=== PATIENT | male | born 1990 | race Caucasian/White ===

== ENCOUNTER 2019-05-15 02:33 | Observation (INO) | payer MEDICAID, SELFPAY ==
[2019-05-15] VITALS (31 sets, daily range): BP systolic 83–140; BP diastolic 50–90; PULSE 98–140; RESP 6–21; TEMP 36.5–37.2; O2SAT 94–100; BMI 29.5; BMI 30.1; BMI 103.6
--- NOTE | 2019-05-15 02:41 | EKG12_ITS ---
Test Reason : [facility] [place] Pressure : / mmHG Vent. Rate : 143 BPM Atrial Rate : 143 BPM P-R Int : 128 ms QRS Dur : 070 ms QT Int : 274 ms P-R-T Axes : 058 036 060 degrees QTc Int : 422 ms Sinus tachycardia Otherwise normal ECG Confirmed by LEXI SAGASTUME, RONI ([id number]), newspaper editor BARB RUIZ ([id number]) on 05/17/2019 11:22:06 AM Referred By: JANNETH Confirmed By:RONI ELLIOTT MD
--- NOTE | 2019-05-15 02:42 | CT_ITS ---
STUDY: CT BRAIN WITHOUT CONTRAST REASON FOR EXAM: Male, 28 years old. ALTERED MENTAL STATUS,HEARING VOICES,UNABLE TO SLEEP X 2 DAYS,ELEVATED BP -- HX:SCHIZOPHRENIA-NO MEDS SINCE MARCH RADIATION DOSAGE (If Supplied By Facility): CTDIvol = ( 44.99 ) mGy, DLP = ( 846.73 ) mGycm TECHNIQUE: Transaxial CT imaging of the brain was performed without administration of intravenous contrast material. Individualized dose optimization techniques were used for this CT. COMPARISON: No relevant priors. FINDINGS: Normal soft tissue structures. Normal calvarium. Normal size ventricles and extra-axial spaces for the patient''s age. Normal white matter tracts of the cerebral hemispheres. Normal basal ganglia and thalami. Normal brainstem. Normal cerebellum. There is no intracranial hemorrhage. There are no findings of an acute ischemic infarction. There is opacification with mucosal thickening of the maxillary sinus, left more than right. Otherwise normal visualized paranasal sinuses. CT/Brain/Head without Contrast IMPRESSION: Normal unenhanced CT scan of the brain. Sequela of maxillary sinus disease, left more than right. Electronically Signed: Judith Wyatt MD at 3:36 EST , Service support ,
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
--- NOTE | 2019-05-15 02:43 | ED.RN ---
parents name and contact information elsy [phone]
[2019-05-15 03:06] LABS: Absolute Lymphocyte Count 1.89 X10^3/uL (0.83-4.51); Absolute Neutrophil Count 18.4 X10^3/uL (2.0-7.7); Basophil# 0.06 X10^3/uL; Basophil% 0.3 % (0-1); Eosinophil# 0.01 X10^3/uL; Hematocrit 46.7 % (40-54); Hemoglobin 16.3 g/dL (13.0-16.5); Lymphocyte # 1.89 X10^3/ul (4.0); Lymphocyte % 8.3 % (19-41); Mean Corp Hgb Conc 34.9 g/dL (32-36); Mean Corpuscular Hgb 30.1 pg (27.0-32.0); Mean Corpuscular Volume 86.3 fL (80-94); Mean Platelet Vol. 9.5 fl (6.2-12.0); Monocyte# 2.11 X10^3/uL; Monocyte% 9.3 % (0-10); NRBC Flagged by Analyzer 0 % (0-5); Neutrophil # 18.43 X10^3/uL (2.7-7.7); Neutrophil % 81.2 % (47-70); POSITIVE DIFFERENTIAL YES; Platelet Count 404 K/mm3 (150-450); RBC Distribution Width CV 12.6 % (11.6-14.6); RBC Distribution Width SD 38.8 fl (35.1-43.9); Red Blood Count 5.41 M/mm3 (4.6-6.2); White Blood Count 22.7 K/mm3 (4.4-11.0)
[2019-05-15 03:10] LABS: Differential Indicated SCAN CRITERIA MET
[2019-05-15 03:29] LABS: ALB/GLOB Ratio 1.1 RATIO (0.9-2.4); AST(SGOT) 66 U/L (15-37); Alanine Aminotransfer ALT/SGPT 183 U/L (16-61); Albumin, Serum 4.3 g/dL (3.2-5.0); Alkaline Phosphatase 107 U/L (45-117); Anion Gap 14 (5-15); BUN 16 mg/dL (7-18); BUN/Creat Ratio 10.7 RATIO (10-20); Calcium,Total 9.5 mg/dL (8.5-10.1); Chloride 98 mmol/L (98-107); Creatinine, Serum 1.49 mg/dL (0.70-1.30); EST Glomerular Filtration Rate 59 mL/min (>60); Est Glom Filt Rate - Afr Amer 72 mL/min (>60); Estimated Creatinine Clearance 83.42 ml/min; Glucose 161 mg/dL (74-106); Potassium 3.3 mmol/L (3.5-5.1); Protein, Total 8.3 g/dL (6.4-8.2); Sodium Level 132 mmol/L (136-145); Thyroid Stim Hormone (TSH) 1.84 uIU/mL (0.358-3.74)
[2019-05-15 03:33] LABS: White Blood Cells 0 SEEN /hpf (0-5)
[2019-05-15 03:40] LABS: Alcohol, Blood (Medical)-Serum < 3.0 mg/dL
[2019-05-15 03:49] LABS: Color, Urine Yellow (Yellow); Glucose, Dipstick Normal (Normal); Leukocyte Esterase-Dipstick Negative /ul (Negative); Nitrite-Dipstick Negative (Negative); Occult Blood-Urine 50 /ul (Negative); Protein-Dipstick 30 mg/dl (Negative); Specific Gravity, Urine 1.025 (1.002-1.030); Urine Bilirubin Dipstick Negative (Negative); Urine Clarity Sl. Cloudy (Clear); Urine Urobilinogen Normal (Normal)
[2019-05-15 03:55] LABS: Ketone-Dipstick 150 mg/dl (Negative)
[2019-05-15 03:56] LABS: Amorphous Sediment 1+; Bacteria RARE /hpf (None Seen); Hyaline Cast 0-5 SEEN /lpf (0-5); Mucous, Urine 2+ /hpf (<or=2+)
[2019-05-15 03:57] LABS: Red Blood Cells-Urine 0-5 SEEN /hpf (0-5); Squamous Epithelial Cells - UA 0-5 SEEN /hpf (0-5)
[2019-05-15 04:06] LABS: Amphetamine Urine VISTA NEGATIVE (<1000 ng/mL); Barbiturate Urine VISTA NEGATIVE (< 200 ng/mL); Benzodiazepine Urine VISTA NEGATIVE (< 200 ng/mL); Cocaine Urine VISTA NEGATIVE (< 300 ng/mL); Ecstacy Urine VISTA NEGATIVE (< 500 ng/mL); Methadone Urine VISTA NEGATIVE (< 300 ng/mL); PCP Urine VISTA NEGATIVE (< 25 ng/mL); THC Urine VISTA NEGATIVE (< 50 ng/mL); Vista UDS pH Range 5
--- NOTE | 2019-05-15 04:31 | RAD_ITS ---
STUDY: X-RAY CHEST REASON FOR EXAM: Male, 28 years old. ALTERED MENTAL STATUS -- PATIENT STATES HE DOES HAVE AN INTERMITTENT COUGH AND HX OF ASTHMA TECHNIQUE: Portable chest COMPARISON: None. FINDINGS: The lungs are clear and expanded. There is no demonstrated pleural abnormality. Normal size heart. Normal mediastinum and mallory. Normal visualized pulmonary arteries. Normal visualized aortic arch and descending thoracic aorta. Normal visualized thoracic spine. Normal visualized ribs, clavicles, and shoulders. There is no demonstrated abnormality of the visualized soft tissue structures of the upper abdomen. RAD/Chest 1 View (Portable) IMPRESSION: Normal x-ray examination of the chest. Electronically Signed: Javris Mann, at 5:23 EST Tel , Service support ,
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
[2019-05-15] MEDS: 0.9% Normal Saline 1,000 ML 999 ML IV ×2 (05:35→08:23)
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
[2019-05-15 06:01] LABS: Lactic Acid 1.4 mmol/L (0.4-1.9)
[2019-05-15] MEDS: Ziprasidone IM 20 MG/ML VIAL IM (06:31)
--- NOTE | 2019-05-15 06:34 | NURSING ---
301 WHITE PSYCHOTIC FEATURES, ALIE, LEUKOCYTOSIS
[2019-05-15 07:12] LABS: Magnesium 2.7 mg/dL (1.6-2.6)
--- NOTE | 2019-05-15 07:20 | NURSING ---
Pt agitated, attempting to get dressed in his own clothes. States he needs to find Jazmin his . This nurse, Arun RN, Jovany [employer]IT[employer] SALES PROFESSIONAL in room attempting to talk to patient. Pt pushing staff members out of the way attempting to leave unit. Dr. Kruger notified and new orders for IM ativan obtained.
[2019-05-15] MEDS: LORazepam 2 MG/ML Syringe IM (07:30)
--- NOTE | 2019-05-15 07:30 | NURSING ---
Pt back to bed, IM ativan given to right deltoid. Sitter remains at bedside.
--- NOTE | 2019-05-15 07:36 | NURSING ---
Venancio in room speaking to patient at this time.
--- NOTE | 2019-05-15 07:52 | PCM.PN.BLA ---
Progress Note Patient is a 28-year-old gentleman with history of paranoid schizophrenia noncompliant with medications who was brought to the emergency department with agitation. Patient was admitted to regular nursing floor. Patient became extremely agitated and out his IV. Was placed in four-point restraint. And transferred to the intensive care unit Patient seen and examined (had received Geodon as well as Ativan prior to my assessment) remains calm at this point. His initial assessment including history and physical diagnostic data and management orders reviewed will follow. STROKE Vital Signs/Narrative: Vital Signs Temp Pulse Resp BP Pulse Ox 05/15/19 06:51 97.8 F 123 H 14 138/86 H 98 05/15/19 05:06 110 H 16 136/83 H 98
--- NOTE | 2019-05-15 08:04 | NURSING ---
Patient's father updated on pt, aware that he was moved to ICU 5.
[2019-05-15] MEDS: 0.9% Normal Saline 1,000 ML 150 ML IV ×3 (09:22→22:23)
[2019-05-15] MEDS: Potassium Chloride 10mEq/100mL 10 MEQ/100 ML IV.SOLN. 100 MEQ IV BOLUS ×4 (13:00→16:51)
[2019-05-15] MEDS: OLANZapine 10 MG Tablet PO ×2 (13:06→21:00)
[2019-05-16 02:00] VITALS: BP 120/78; PULSE 106; RESP 18; TEMP 36.6; O2SAT 99
[2019-05-16] MEDS: 0.9% Normal Saline 1,000 ML 150 ML IV (05:11)
--- NOTE | 2019-05-16 05:55 | US_ITS ---
STUDY: ABDOMINAL ULTRASOUND - RIGHT UPPER QUADRANT REASON FOR VISIT: Male, 28 years old ELEVATED LIVE ENZYMES TECHNIQUE: Ultrasound evaluation of the right upper quadrant was performed with real-time and static salgado-scale imaging. TECHNICAL QUALITY: Adequate. COMPARISON: None. FINDINGS: Liver: The liver is slightly enlarged and measures 18.2 cm. There is increased echogenicity consistent with fatty infiltration. The bile ducts are within normal limits. There is hepatic color flow. The direction of portal flow is hepatopetal. There is no demonstrated mass lesion. Gallbladder: Normal distended gallbladder. The gallbladder wall measures 2.8 mm. There is a negative sonographic Burgess''s sign. There is no pericholecystic fluid. There are no gallstones. Common Bile Duct (C.B.D.): The common bile duct measures 3.1 mm. Pancreas: Normal size of the head, body and tail of the pancreas. There is increased echogenicity of the pancreas. There is no demonstrated pancreatic mass or cyst. Right Kidney: Normal size of the right kidney. The right kidney measures 12.1 cm x 5.4 cm x 4.9 cm. Normal renal cortex. The right cortex measures 1.6 cm. There is no demonstrated renal mass or cyst. There is no right hydronephrosis. US/Liver IMPRESSION: Mild hepatomegaly and fatty infiltration of the liver. Electronically Signed: Elieser Newman, at 8:43 EST , Service support ,
[2019-05-16 06:47] LABS: Absolute Neutrophil Count 4.9 X10^3/uL (2.0-7.7); Basophil# 0.04 X10^3/uL; Basophil% 0.5 % (0-1); Eosinophils% 1.2 % (0-5); Hemoglobin 14.1 g/dL (13.0-16.5); Mean Corp Hgb Conc 33.6 g/dL (32-36); Mean Corpuscular Hgb 30.7 pg (27.0-32.0); Mean Corpuscular Volume 91.3 fL (80-94); Mean Platelet Vol. 9.5 fl (6.2-12.0); Monocyte# 0.92 X10^3/uL; Monocyte% 11.4 % (0-10); NRBC Flagged by Analyzer 0 % (0-5); Neutrophil # 4.87 X10^3/uL (2.7-7.7); Neutrophil % 60.2 % (47-70); Platelet Count 233 K/mm3 (150-450); RBC Distribution Width CV 13.1 % (11.6-14.6); RBC Distribution Width SD 42.7 fl (35.1-43.9); White Blood Count 8.1 K/mm3 (4.4-11.0)
[2019-05-16 07:11] LABS: AST(SGOT) 72 U/L (15-37); Alanine Aminotransfer ALT/SGPT 136 U/L (16-61); Albumin, Serum 3.1 g/dL (3.2-5.0); Alkaline Phosphatase 82 U/L (45-117); Anion Gap 4 (5-15); BUN 7 mg/dL (7-18); BUN/Creat Ratio 8.1 RATIO (10-20); Calcium,Total 8.5 mg/dL (8.5-10.1); Chloride 111 mmol/L (98-107); Creatinine, Serum 0.86 mg/dL (0.70-1.30); EST Glomerular Filtration Rate 112 mL/min (>60); Est Glom Filt Rate - Afr Amer 135 mL/min (>60); Estimated Creatinine Clearance 144.52 ml/min; Globulin 3.1 g/dL (2.2-4.2); Glucose 92 mg/dL (74-106); Potassium 3.9 mmol/L (3.5-5.1); Protein, Total 6.2 g/dL (6.4-8.2); Sodium Level 140 mmol/L (136-145)
[2019-05-16 08:15] VITALS: O2SAT 98
[2019-05-16 08:27] LABS: Hemoglobin A1c 5.2 % (4.2-6.3)
[2019-05-16 08:59] VITALS: BP 132/66; PULSE 110; RESP 18; TEMP 36.6; O2SAT 97
--- NOTE | 2019-05-16 12:51 | NURSING ---
Crisis info:accepting facility [facility] number for report [phone] Higuera
--- NOTE | 2019-05-16 13:16 | DCINST_ITS ---
- Discharge Diagnoses Current Active Problems: Current Active and Chronic Problems Schizophrenia (Chronic) Altered mental status (Acute) SIRS (systemic inflammatory response syndrome) (Acute) ALIE (acute kidney injury) (Acute) Psychosis (Acute) Reason(s) for Visit for Discharge Instructions: Agitation You will use the following diet at home:: No restrictions Your food should be the consistency of: Regular Your liquids should be the consistency of: Regular/Thin Discharge Activity: Return to Normal Activity Allergies/Adverse Reactions: Allergies amoxicillin Allergy (Verified 05/15/19 06:57) Swelling bacitracin [From Neosporin ([id number])] Allergy (Verified 05/15/19 06:57) Swelling cefaclor [From Ceclor] Allergy (Verified 05/15/19 06:57) Swelling neomycin [From Neosporin ([id number])] Allergy (Verified 05/15/19 06:57) Swelling Penicillins Allergy (Verified 05/15/19 06:57) Swelling polymyxin B [From Neosporin ([id number])] Allergy (Verified 05/15/19 06:57) Swelling Medications to take at Discharge Albuterol Sulfate [Proair Respiclick] 2 puff IH Q6H PRN 05/15/19 Montelukast 10 mg PO DAILY 05/15/19 Olanzapine 10 mg PO QHS 05/15/19 Primary Care Physician: Clive Keller MD [Primary Care Provider] - Please follow up with your Primary Care Physician in: within 1-2 weeks Test Results: Test results from this visit will be discussed in further detail at your follow- up appointment, if applicable. Proposed Discharge Date: 05/16/19
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
[2019-05-16 14:16] LABS: Pathologist Review Reviewed
--- NOTE | 2019-05-16 15:08 | NURSING ---
NURSE TO NURSE REPORT CALLED TO SASHA AT [facility]
[2019-05-16 15:10] VITALS: BP 162/90; PULSE 110; RESP 18; TEMP 36.7; O2SAT 98
[2019-05-17 03:06] LABS: HEPATITIS B SURFACE AG Negative (Negative); Hepatitis A AB, Total Positive (Negative); Hepatitis A IgM Antibody Negative (Negative); Hepatitis B Core AB IgM Negative (Negative); Hepatitis B Core Ab Total Negative (Negative); Hepatitis C Ab <0.1 s/co ratio (0.0-0.9)
[2019-05-17 16:25] LABS: Hep B Surface Antibodies Reactive (.)
== END 2019-05-16 16:30 | DRG 422 ==
LOC: ED 04:59 → MS3 05:39 → ICU 10-27 09:48
PROVIDERS: Admitting Provider Family Medicine; Emergency Provider Emergency Medicine; PCP Family Medicine; Visit Provider Internal Medicine
DX: N17.9 Acute kidney failure, unspecified (principal); R65.10 Systemic inflammatory response syndrome (SIRS) of non-infectious origin without acute organ dysfunction; F20.0 Paranoid schizophrenia; E87.1 Hypo-osmolality and hyponatremia; E86.1 Hypovolemia; E87.6 Hypokalemia; R73.9 Hyperglycemia, unspecified; F32.9 Major depressive disorder, single episode, unspecified; F41.9 Anxiety disorder, unspecified; E66.3 Overweight; Z68.29 Body mass index [BMI] 29.0-29.9, adult; F17.210 Nicotine dependence, cigarettes, uncomplicated; F17.290 Nicotine dependence, other tobacco product, uncomplicated; Z91.14 Patient's other noncompliance with medication regimen
CPT/HCPCS: 36415; 70450; 71045; 76705; 80053; 80307; 80320; 81001; 83036; 83605; 83735; 84443; 85025; 86704; 86705; 86706; 86708; 86709; 86803; 87040; 87340; 87633; 93005; 99218; 99285; J7030; A4216; G0378; G0480; J3486

== ENCOUNTER 2020-07-19 10:12 | Emergency (ER) | payer MEDICARE, MEDICAID, SELFPAY ==
[2019-05-15 06:50] VITALS: BMI 30.1
[2020-07-19 10:12] VITALS: RESP 16
[2020-07-19 10:14] VITALS: RESP 17; TEMP 37.3; BMI 30.2
--- NOTE | 2020-07-19 10:16 | EKG12_ITS ---
Test Reason : MENTAL CLEARANCE Blood Pressure : / mmHG Vent. Rate : 108 BPM Atrial Rate : 108 BPM P-R Int : 140 ms QRS Dur : 074 ms QT Int : 332 ms P-R-T Axes : 041 007 043 degrees QTc Int : 444 ms Sinus tachycardia Otherwise normal ECG Confirmed by GRACE SAGASTUME, ILA ([id number]), non linear editor FLASH VILLEGAS ([id number]) on 07/23/2020 1:23:42 PM Referred By: MARCIO Confirmed By:HERMES EDWARDS MD
[2020-07-19 10:20] VITALS: BP 150/79; PULSE 116; RESP 169; O2SAT 95
--- NOTE | 2020-07-19 10:25 | ED.DCSUM_ITS ---
History of Present Illness Chief Complaint: Mental Health Informant: Patient, Retail Marketing Executive, - - Police Narrative: 29-year-old male with a history of schizophrenia per his parents has not been on his medications. He was found wandering town near [facility]. Patient seems very internally stimulated per EMS. He was not violent but not wanting to cooperate either. Patient tells me he is in search for his . He states he does not know when he was . He states he is not working. He states has been up for 7 days. He states that he is seeing some really weird stuff. When attempting to get further details from him he states that he does not want to talk about it. He states he is not any medications currently. He denies any known medical problems. Please tell me his parents were coming to town to take him to the hospital to get him psychiatric help. Patient denies any suicidal or homicidal ideation. He does not know the year. He does not know when his last meal was. He does not know when the last time he changed his close was. - Past Medical History (1) Schizophrenia Status: Chronic Past Medical History - Allergies and Home Meds Allergies/Adverse Reactions: Allergies amoxicillin Allergy (Verified 07/19/20 10:13) Swelling bacitracin [From Neosporin ([id number])] Allergy (Verified 07/19/20 10:13) Swelling cefaclor [From Ceclor] Allergy (Verified 07/19/20 10:13) Swelling neomycin [From Neosporin ([id number])] Allergy (Verified 07/19/20 10:13) Swelling Penicillins Allergy (Verified 07/19/20 10:13) Swelling polymyxin B [From Neosporin ([id number])] Allergy (Verified 07/19/20 10:13) Swelling Primary Care Physician: Clive Keller MD [Primary Care Provider] - Surgical History: no surgical history - Denies any surgical history. Lives: Alone Smoking Status: Current every day smoker Alcohol: None Drugs: None - Family History Maternal Family History: Reports: - - Patient denies any market maternal or paternal family history including heart disease, diabetes or cancer. Paternal Family History: Reports: - - Patient denies any market maternal or paternal family history including heart disease, diabetes or cancer. Review of Systems General: Denies: Chills, Fever, Sweats Eyes: Denies: Visual changes - bilaterally, Diplopia ENT: Denies: Rhinorrhea, Sore throat Cardiovascular: Denies: Chest pain, Palpitations Respiratory: Denies: Dyspnea, Cough, Dyspnea on exertion Gastrointestinal: Denies: Abdominal pain, Nausea, Vomiting, Diarrhea, Melena, Hematochezia Genitourinary: Denies: Dysuria, Hematuria, Frequency Musculoskeletal: Denies: Back pain, Extremity Pain Skin: Denies: Rash, Wounds Neurological: Denies: Headache, Weakness, Numbness Psych: Reports: Anxiety, - - Visual hallucinations. Denies: Depression, Suicidal thoughts, Suicidal ideations Physical Exam Vital Signs/Narrative: Vital Signs Temp Pulse Resp BP Pulse Ox 07/19/20 10:20 116 H 169 H 150/79 H 95 07/19/20 10:14 99.2 F H 17 07/19/20 10:12 16 Inital Vital Signs reviewed: Yes General: Well nourished, Well developed, Unkempt, No Acute Distress Head: Normocephalic, Atraumatic Eyes: Perrl, EOMI ENT: Moist mucous membranes, No rhinorrhea Neck: Supple, Nontender Cardiovascular: Regular rate, Regular rhythm, No murmurs Respiratory: No distress, CTA bilaterally, Chest nontender Abdomen: Soft, Nontender, Nondistended, Normal bowel sounds Back: Nontender, Normal Inspection Extremities: Nontender, No edema Skin: Normal color, No rash Neurological: Cranial nerves II-XII grossly intact, Normal Strength, Normal Sensation, Hyperalert Psychological: - - Patient appears very anxious he admits to visual hallucinations but does not tell what. It appears very internally stimulated. He has pressured speech. Diagnostic/Tx/Re-eval Laboratory Last Values WBC 10.5 K/mm3 (4.4-11.0) 07/19/20 11:07 RBC 5.26 M/mm3 (4.6-6.2) 07/19/20 11:07 Hgb 16.4 g/dL (13.0-16.5) 07/19/20 11:07 Hct 46.9 % (40-54) 07/19/20 11:07 MCV 89.2 fL (80-94) 07/19/20 11:07 MCH 31.2 pg (27.0-32.0) 07/19/20 11:07 MCHC 35.0 g/dL (32-36) 07/19/20 11:07 RDW Std Deviation 41.0 fl (35.1-43.9) 07/19/20 11:07 RDW Coeff of Francisca 12.7 % (11.6-14.6) 07/19/20 11:07 Plt Count 347 K/mm3 (150-450) 07/19/20 11:07 MPV 9.7 fl (6.2-12.0) 07/19/20 11:07 Immature Gran % (Auto) 0.500 % (0.0-0.9) 07/19/20 11:07 Neut % (Auto) 81.1 % (47-70) H 07/19/20 11:07 Lymph % (Auto) 9.9 % (19-41) L 07/19/20 11:07 Wood % (Auto) 8.0 % (0-10) 07/19/20 11:07 Eos % (Auto) 0.1 % (0-5) 07/19/20 11:07 Baso % (Auto) 0.4 % (0-1) 07/19/20 11:07 Absolute Neuts (auto) 8.5 X10^3/uL (2.0-7.7) H 07/19/20 11:07 Absolute Lymphs (auto) 1.04 X10^3/uL (0.83-4.51) 07/19/20 11:07 Nucleated RBC % 0 % (0-5) 07/19/20 11:07 Sodium 138 mmol/L (136-145) 07/19/20 11:07 Potassium 2.9 mmol/L (3.5-5.1) L 07/19/20 11:07 Chloride 107 mmol/L (98-107) 07/19/20 11:07 Carbon Dioxide 26.0 mmol/L (21.0-32.0) 07/19/20 11:07 Anion Gap 5 (5-15) 07/19/20 11:07 BUN 13 mg/dL (7-18) 07/19/20 11:07 Creatinine 1.01 mg/dL (0.70-1.30) 07/19/20 11:07 Estim Creat Clear Calc 121.96 ml/min 07/19/20 11:07 Est GFR (MDRD) Af Amer 112 mL/min (>60) 07/19/20 11:07 Est GFR (MDRD) Non-Af 92 mL/min (>60) 07/19/20 11:07 BUN/Creatinine Ratio 12.9 RATIO (10-20) 07/19/20 11:07 Glucose 125 mg/dL (74-106) H 07/19/20 11:07 Calcium 9.8 mg/dL (8.5-10.1) 07/19/20 11:07 Total Bilirubin 0.70 mg/dL (0.20-1.00) 07/19/20 11:07 AST 74 U/L (15-37) H 07/19/20 11:07 ALT 181 U/L (16-61) H 07/19/20 11:07 Alkaline Phosphatase 116 U/L (45-117) 07/19/20 11:07 Total Protein 8.3 g/dL (6.4-8.2) H 07/19/20 11:07 Albumin 4.6 g/dL (3.2-5.0) 07/19/20 11:07 Globulin 3.7 g/dL (2.2-4.2) 07/19/20 11:07 Albumin/Globulin Ratio 1.2 RATIO (0.9-2.4) 07/19/20 11:07 Urine Color Yellow (Yellow) 07/19/20 12:22 Urine Clarity Clear (Clear) 07/19/20 12:22 Urine pH 6.0 (5.0 - 8.0) 07/19/20 12:22 Ur Specific [place] 1.020 (1.002-1.030) 07/19/20 12:22 Urine Protein 30 mg/dl (Negative) H 07/19/20 12:22 Urine Glucose (UA) 50 mg/dl (Normal) H 07/19/20 12:22 Urine Ketones 15 mg/dl (Negative) H 07/19/20 12:22 Urine Occult Blood 50 /ul (Negative) H 07/19/20 12:22 Urine Nitrite Negative (Negative) 07/19/20 12:22 Urine Bilirubin Negative mg/dL (Negative) 07/19/20 12:22 Urine Urobilinogen Normal mg/dl (Normal) 07/19/20 12:22 Ur Leukocyte Esterase Negative /ul (Negative) 07/19/20 12:22 Urine RBC 0-5 SEEN /hpf (0-5) 07/19/20 12:22 Urine WBC 0-5 SEEN /hpf (0-5) 07/19/20 12:22 Ur Squamous Epith Cells 0 SEEN /hpf (0-5) 07/19/20 12:22 Urine Bacteria 0 SEEN /hpf (None Seen) 07/19/20 12:22 Urine Mucus 3+ /hpf (<or=2+) 07/19/20 12:22 Urine Opiates Screen NEGATIVE (< 300 ng/mL) 07/19/20 12:22 Urine Methadone Screen NEGATIVE (< 300 ng/mL) 07/19/20 12:22 Ur Barbiturates Screen NEGATIVE (< 200 ng/mL) 07/19/20 12:22 Ur Phencyclidine Scrn NEGATIVE (< 25 ng/mL) 07/19/20 12:22 Ur Amphetamines Screen NEGATIVE (<1000 ng/mL) 07/19/20 12:22 U Methamphetamin-MDMA NEGATIVE (< 500 ng/mL) 07/19/20 12:22 U Benzodiazepines Scrn NEGATIVE (< 200 ng/mL) 07/19/20 12:22 Urine Cocaine Screen NEGATIVE (< 300 ng/mL) 07/19/20 12:22 U Cannabinoids Screen NEGATIVE (< 50 ng/mL) 07/19/20 12:22 Ur Drug Screen Comment 07/19/20 12: Ethyl Alcohol < 3.0 mg/dL 07/19/20 11:07 - Medical Decision Making Patient is medically cleared for psychiatric evaluation. I believe the patient requires psychiatric admission. [place] slip will be filled out. Does not appear that the patient is caring for himself or able to function and provide for his basic needs due to his mental illness. ED Disposition - Plan for ED Patient: Disposition: Psychiatric Hospital or Unit Diagnosis: Schizophrenia, acute, Noncompliance Referrals: Clive Keller MD [Primary Care Provider] -
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
[2020-07-19 11:15] LABS: Absolute Lymphocyte Count 1.04 X10^3/uL (0.83-4.51); Absolute Neutrophil Count 8.5 X10^3/uL (2.0-7.7); Basophil# 0.04 X10^3/uL; Basophil% 0.4 % (0-1); Eosinophil# 0.01 X10^3/uL; Eosinophils% 0.1 % (0-5); Hematocrit 46.9 % (40-54); Hemoglobin 16.4 g/dL (13.0-16.5); Lymphocyte # 1.04 X10^3/ul (4.0); Lymphocyte % 9.9 % (19-41); Mean Corpuscular Hgb 31.2 pg (27.0-32.0); Mean Corpuscular Volume 89.2 fL (80-94); Mean Platelet Vol. 9.7 fl (6.2-12.0); Monocyte# 0.84 X10^3/uL; NRBC Flagged by Analyzer 0 % (0-5); Neutrophil % 81.1 % (47-70); Platelet Count 347 K/mm3 (150-450); RBC Distribution Width CV 12.7 % (11.6-14.6); Red Blood Count 5.26 M/mm3 (4.6-6.2); White Blood Count 10.5 K/mm3 (4.4-11.0)
[2020-07-19 11:32] LABS: ALB/GLOB Ratio 1.2 RATIO (0.9-2.4); AST(SGOT) 74 U/L (15-37); Alanine Aminotransfer ALT/SGPT 181 U/L (16-61); Albumin, Serum 4.6 g/dL (3.2-5.0); Alkaline Phosphatase 116 U/L (45-117); Anion Gap 5 (5-15); BUN 13 mg/dL (7-18); BUN/Creat Ratio 12.9 RATIO (10-20); Calcium,Total 9.8 mg/dL (8.5-10.1); Chloride 107 mmol/L (98-107); Creatinine, Serum 1.01 mg/dL (0.70-1.30); EST Glomerular Filtration Rate 92 mL/min (>60); Est Glom Filt Rate - Afr Amer 112 mL/min (>60); Estimated Creatinine Clearance 121.96 ml/min; Globulin 3.7 g/dL (2.2-4.2); Glucose 125 mg/dL (74-106); Potassium 2.9 mmol/L (3.5-5.1); Protein, Total 8.3 g/dL (6.4-8.2); Sodium Level 138 mmol/L (136-145)
[2020-07-19] MEDS: Ziprasidone IM 20 MG/ML VIAL IM (11:35)
[2020-07-19 11:43] LABS: Alcohol, Blood (Medical)-Serum < 3.0 mg/dL
--- NOTE | 2020-07-19 12:10 | CM.ED ---
SOCIAL WORK ASSESSMENT Referral Source: Dr. Thorpe Reason for Consult: Mental Health Evaluation Chief Compliant: Patient presents to ER by police and EMS. Patient with history of schizophrenia and per patient's parents he has been off medications for 10-12 days. Patient internally stimulated. Dr. Thorpe recommending inpatient psych for stabilization. Marital/Social History: Single Living Situation: Alone in an apartment Support/Resources: [facility]- senior architect/design manager is Hima Zepeda, Psych Services- patient follows with Justina Pedroza. History: N/A Education and Employment History: High School graduate, unemployed Mental Health Treatment/History: Schizophrenia. Patient denies any mental health history. Patient's father in room and states patient has been diagnosed with Schizophrenia and is treated with medications. Father reports patient has been off medications for 10-12 days. Father states patient is not sleeping or caring for self. Patient reports I've been awake for 6 days. Triggers/Stressors: trying to find my Patient's father reports patient is not or in a relationship. Coping Skills: None reported Abuse Issues: Patient denies any emotional, physical or sexual trauma. Substance Abuse History: Patient and father deny any history of substance abuse. Risk to Self/Others: Suicidal- Patient denies any suicidal ideation, plan or intent. Homicidal- Patient denies any homicidal ideation. Mental Status Exam: Orientation- A&Ox2 Memory- poor Appearance/General Behavior: unkempt Mood/Affect: anxious Communication Pattern: responds to questions Thought Process: paranoid, hallucinations-auditory Judgment: poor Assessment: Met with patient and patient's father in room. Introduced role and reason for referral. Patient gave permission for this worker to speak openly with father present. Patient reports lives in an apartment alone. Patient states I'm trying to find my . Father reports patient is not and has been off his medications for 10-12 days. Patient denies any history of mental health. Father reports patient has been diagnosed with schizophrenia and follows with Justina Pedroza through Psych Services at [facility]. Father states patient was seeing a counselor, however due to COVID-19, things fell off. Father voiced many concerns for patient and reports patient was last hospitalized in April 2019 due to same episodes. Collaboration with Dr. Thorpe. Patient requiring inpatient psych hospitalization for stabilization. [place] Slip on chart. This worker to facilitate placement once medically cleared. Plan: Referral for inpatient psych hospitalization for stabilization COURTNEY Reinoso, BRUSHER WARP
[2020-07-19 12:27] LABS: Bacteria 0 SEEN /hpf (None Seen); Squamous Epithelial Cells - UA 0 SEEN /hpf (0-5)
[2020-07-19 12:31] LABS: Color, Urine Yellow (Yellow); Glucose, Dipstick 50 mg/dl (Normal); Ketone-Dipstick 15 mg/dl (Negative); Leukocyte Esterase-Dipstick Negative /ul (Negative); Nitrite-Dipstick Negative (Negative); Occult Blood-Urine 50 /ul (Negative); Protein-Dipstick 30 mg/dl (Negative); Urine Bilirubin Dipstick Negative (Negative); Urine Clarity Clear (Clear); Urine Urobilinogen Normal (Normal)
[2020-07-19 12:39] LABS: Mucous, Urine 3+ /hpf (<or=2+); Red Blood Cells-Urine 0-5 SEEN /hpf (0-5); White Blood Cells 0-5 SEEN /hpf (0-5)
[2020-07-19] MEDS: LORazepam 2 MG/ML Syringe IM (12:47)
[2020-07-19] MEDS: DiphenhydrAMINE 50 MG/ML Syringe IM (12:47)
[2020-07-19 12:51] LABS: Amphetamine Urine VISTA NEGATIVE (<1000 ng/mL); Barbiturate Urine VISTA NEGATIVE (< 200 ng/mL); Benzodiazepine Urine VISTA NEGATIVE (< 200 ng/mL); Cocaine Urine VISTA NEGATIVE (< 300 ng/mL); Ecstacy Urine VISTA NEGATIVE (< 500 ng/mL); Methadone Urine VISTA NEGATIVE (< 300 ng/mL); PCP Urine VISTA NEGATIVE (< 25 ng/mL); THC Urine VISTA NEGATIVE (< 50 ng/mL); Vista UDS pH Range 5
--- NOTE | 2020-07-19 14:13 | CM.ED ---
SOCIAL WORK Referral faxed and called to [facility]. Pending review at this time. Cheyenne Thompson, CELLOPHANE BAG MACHINE OPERATOR, DOLL REPAIRER
--- NOTE | 2020-07-19 15:39 | CM.ED ---
SOCIAL WORK Received call from Eloisa mahan [facility]. Patient has been accepted by Dr. Laird to the [facility] Unit. Nurse to call report to . [place] to set up transport. Cheyenne Thompson, OVER SHORT AND DAMAGE CLERK, NEWSPAPER PHOTO EDITOR
[2020-07-19 18:27] VITALS: BP 138/88; PULSE 71; RESP 16; O2SAT 100
== END 2020-07-19 18:31 ==
PROVIDERS: Emergency Provider Emergency Medicine; PCP Family Medicine
DX: F20.9 Schizophrenia, unspecified (principal); Z91.83 Wandering in diseases classified elsewhere; Z91.14 Patient's other noncompliance with medication regimen; Z91.19 Patient's noncompliance with other medical treatment and regimen; F17.200 Nicotine dependence, unspecified, uncomplicated
CPT/HCPCS: 80053; 80307; 81001; 82077; 85025; 87426; 93005; 96372; 99285; J3486

== ENCOUNTER → 2023-03-17 | Outpatient (CLI) | payer MEDICARE, MEDICAID, SELFPAY ==
[2023-03-17 09:50] LABS: AST(SGOT) 14 U/L (15-37); Alanine Aminotransfer ALT/SGPT 28 U/L (16-61); Albumin, Serum 3.8 g/dL (3.2-5.0); Alkaline Phosphatase 99 U/L (45-117); Anion Gap 3 (5-15); BUN 14 mg/dL (7-18); BUN/Creat Ratio 16.2 RATIO (10-20); Calcium,Total 9.3 mg/dL (8.5-10.1); Chloride 105 mmol/L (98-107); Cholesterol 166 mg/dL (200); Creatinine, Serum 0.87 mg/dL (0.70-1.30); EST Glomerular Filtration Rate 108 mL/min (>60); Est Glom Filt Rate - Afr Amer 131 mL/min (>60); Globulin 3.7 g/dL (2.2-4.2); Glucose 95 mg/dL (74-106); High Density Lipoprotein 38 mg/dL; Potassium 4.1 mmol/L (3.5-5.1); Protein, Total 7.5 g/dL (6.4-8.2); Sodium Level 138 mmol/L (136-145); Thyroid Stim Hormone (TSH) 1.96 uIU/mL (0.358-3.74); Triglycerides 193 mg/dL; Very Low Density Lipoprotein 39 mg/dL (5-40)
[2023-03-17 10:13] LABS: Hemoglobin A1c 4.9 % (3.8-5.6)
== END | disposition home or self-care (01) ==
LOC: LAB 08:32
PROVIDERS: PCP Family Medicine; Referring Provider Registered Nurse; Visit Provider Registered Nurse
DX: F20.9 Schizophrenia, unspecified (principal); R53.83 Other fatigue; Z79.899 Other long term (current) drug therapy
CPT/HCPCS: 36415; 80053; 80061; 83036; 84146; 84443

== ENCOUNTER → 2024-12-22 | Outpatient (CLI) | payer MEDICARE, MEDICAID, SELFPAY ==
[2024-12-22 12:50] LABS: Hematocrit 43.8 % (40-54); Hemoglobin 15.3 g/dL (13.0-16.5); Mean Corp Hgb Conc 34.9 g/dL (32-36); Mean Corpuscular Volume 87.6 fL (80-94); Mean Platelet Vol. 10.3 fl (6.2-12.0); Platelet Count 302 K/mm3 (150-450); RBC Distribution Width CV 12.4 % (11.6-14.6); RBC Distribution Width SD 39.1 fl (35.1-43.9); Red Blood Count 5.00 M/mm3 (4.6-6.2); White Blood Count 8.1 K/mm3 (4.4-11.0)
[2024-12-22 13:13] LABS: AST(SGOT) 21 U/L (<=37); Alanine Aminotransfer ALT/SGPT 22 U/L (<=46); Albumin, Serum 4.8 g/dL (3.5-5.0); Alkaline Phosphatase 106 U/L (40-129); Anion Gap 14 (5-15); BUN 15 mg/dL (4-19); BUN/Creat Ratio 19.0 RATIO (10-20); Calcium,Total 10.3 mg/dL (7.6-11.0); Carbon Dioxide 24.0 mmol/L (21.0-32.0); Chloride 101 mmol/L (98-108); Cholesterol 183 mg/dL (<=200); Globulin 3.2 g/dL (2.2-4.2); Glucose 102 mg/dL (70-99); Low Density Lipoprotein Calc. 101 mg/dL; Potassium 4.6 mmol/L (3.3-5.1); Triglycerides 170 mg/dL; Very Low Density Lipoprotein 34 mg/dL (5-40); cholesterol:hdl ratio screen 3.80
== END | disposition home or self-care (01) ==
LOC: MFPLAB 11:00
PROVIDERS: PCP Family Medicine; Referring Provider Family Medicine; Visit Provider Family Medicine
DX: Z13.1 Encounter for screening for diabetes mellitus (principal); Z13.220 Encounter for screening for lipoid disorders; F10.11 Alcohol abuse, in remission
CPT/HCPCS: 36415; 80053; 80061; 83036; 85027